=== PATIENT | male | born 1980 | race Caucasian/White ===

== ENCOUNTER 2023-02-28 08:39 | Day surgery (SDC) | payer OTHER ==
[2023-02-24 14:50] VITALS: BMI 24.3
[2023-02-28 09:50] VITALS: TEMP 97.7
[2023-02-28 11:00] VITALS: BP 112/61; PULSE 50; RESP 18
== END 2023-02-28 10:35 | disposition home or self-care (01) ==
LOC: FASU-ENDO 08:39
PROVIDERS: ATTEND Internal Medicine Gastroenterology
PROC: 0DB78ZX Excision of Stomach, Pylorus, Via Natural or Artificial Opening Endoscopic, Diagnostic (ICD-10-PCS; 2023-02-28)
PROC: 0DB48ZX Excision of Esophagogastric Junction, Via Natural or Artificial Opening Endoscopic, Diagnostic (ICD-10-PCS; 2023-02-28)
PROC: 0DB98ZX Excision of Duodenum, Via Natural or Artificial Opening Endoscopic, Diagnostic (ICD-10-PCS; principal; 2023-02-28 09:26)
DX: K21.00 Gastro-esophageal reflux disease with esophagitis, without bleeding (principal); K29.70 Gastritis, unspecified, without bleeding; K25.9 Gastric ulcer, unspecified as acute or chronic, without hemorrhage or perforation
CPT/HCPCS: 88305-TC; 88342-TC